=== PATIENT | female | born 1990 | race Two or more races ===

== ENCOUNTER 2020-09-21 19:57 | Emergency (ER) | payer BC, OTHER ==
[~2020-09-21] VITALS: Ht 185.4 cm; Wt 103.2 kg
--- NOTE | 2020-09-21 21:10 | NUR ---
EQUIP MAINT ENG: PT. TO ROOM FROM LOBBY AT THIS TIME.
[2020-09-21] MEDS ORDERED: SODIUM CHLORIDE FLUSH 10ML SYR IVF ONE (21:30)
[2020-09-21] MEDS ORDERED: SODIUM CHLORIDE 0.9% 1,000ML IVBOLUS ONE (21:30)
[2020-09-21] MEDS ORDERED: METOCLOPRAMIDE 5 MG/ML, 2ML IVPush ONE (21:30)
[2020-09-21] MEDS ORDERED: KETOROLAC 30 MG/1 ML IVPush ONE (21:30)
[2020-09-21] MEDS ORDERED: DIPHENHYDRAMINE 50 MG/ML, 1ML IVPush ONE (21:30)
--- NOTE | 2020-09-21 21:38 | NUR ---
assumed care of pt. pt here c/o MCDONOUGH. pt A&O x4. cam and cooperative. ambulatory and no facial droop noted. Dr. Rondon has been to bedside for eval. IV and IV medications held for now per MD order until pt has had CT scan pt sitting up on gurney texting on cell phone. no family at bedside. no apparent distress
[2020-09-21 22:18] VITALS: BP 108/65
--- NOTE | 2020-09-21 23:11 | NUR ---
ths pt was D/C by another RN
== END 2020-09-21 23:07 | disposition home or self-care (01) ==
LOC: ED 21:52
DX: G44.52 New daily persistent headache (NDPH) (principal)
CPT/HCPCS: 70450; 99284

== ENCOUNTER 2021-03-29 14:27 | Outpatient (CLI) | payer OTHER ==
[~2021-03-29] VITALS: Ht 185.4 cm; Wt 117.0 kg
[2021-03-29 14:45] VITALS: BP 125/79
[2021-03-29 15:01] LABS: BASOPHILS % (AUTO) 0 % (0-1); EOSINOPHILS % (AUTO) 0 % (1-7); LYMPHOCYTES % (AUTO) 19 % (22-44); MEAN CORPUSCULAR HEMOGLOBIN 29.4 pg (27.0-34.8); MEAN CORPUSCULAR HGB CONC 33.4 g/dL (32.4-35.8); MEAN PLATELET VOLUME 8.5 fL (7.4-10.4); MONOCYTES % (AUTO) 11 % (2-9); NEUTROPHILS % (AUTO) 70 % (42-75); PLATELET COUNT 315 x10^3/uL (130-400); RED BLOOD COUNT 4.47 x10^6/uL (3.82-5.3); RED CELL DISTRIBUTION WIDTH 13.8 % (9.6-15.2)
[2021-03-29 15:08] LABS: ALANINE AMINOTRANSFERASE 31 U/L (12-78); ALBUMIN 2.4 g/dL (3.4-5.0); ANION GAP 8 mmol/L (5-15); BILIRUBIN, DIRECT < 0.1 mg/dL (0.1-0.2); CALCIUM 8.5 mg/dL (8.5-10.1); CHLORIDE 107 mmol/L (98-107); CREATININE 0.55 mg/dL (0.55-1.02)
[2021-03-29 15:09] LABS: MD NO
[2021-03-29 15:10] LABS: ALKALINE PHOSPHATASE 95 U/L (45-117); BILIRUBIN,TOTAL 0.2 mg/dL (0.2-1.0)
[2021-03-29 15:51] LABS: MICROSCOPIC AUTO
[2021-03-29 15:57] LABS: TOTAL PROTEIN,URINE RANDOM < 5 mg/dL (0-12)
== END 2021-03-29 16:52 | disposition home or self-care (01) ==
LOC: LDOP 14:27
PROVIDERS: ATTEND Obstetrics & Gynecology
DX: O16.3 Unspecified maternal hypertension, third trimester (principal); Z3A.38 38 weeks gestation of pregnancy
CPT/HCPCS: 36415; 59025; 80053; 81001; 82248; 82570; 84156; 84550; 85025

== ENCOUNTER 2021-04-04 14:11 | Outpatient (CLI) | payer OTHER ==
[~2021-04-04] VITALS: Ht 185.4 cm; Wt 118.2 kg
[2021-04-04 14:22] VITALS: BP 127/77
[2021-04-04] MEDS ORDERED: ACETAMINOPHEN 325 MG TABLET ONE (14:52)
[2021-04-04] MEDS ORDERED: ACETAMINOPHEN 325 MG TABLET PO ONE (15:00)
[2021-04-04 15:08] LABS: BASOPHILS % (AUTO) 1 % (0-1); EOSINOPHILS % (AUTO) 1 % (1-7); LYMPHOCYTES % (AUTO) 15 % (22-44); MD NO; MEAN CORPUSCULAR HEMOGLOBIN 29.9 pg (27.0-34.8); MEAN CORPUSCULAR HGB CONC 33.7 g/dL (32.4-35.8); MEAN PLATELET VOLUME 8.7 fL (7.4-10.4); MONOCYTES % (AUTO) 9 % (2-9); NEUTROPHILS % (AUTO) 75 % (42-75); PLATELET COUNT 299 x10^3/uL (130-400); RED BLOOD COUNT 4.52 x10^6/uL (3.82-5.3); RED CELL DISTRIBUTION WIDTH 14.1 % (9.6-15.2)
[2021-04-04 15:20] LABS: ALANINE AMINOTRANSFERASE 58 U/L (12-78); ALBUMIN 2.5 g/dL (3.4-5.0); ANION GAP 9 mmol/L (5-15); CALCIUM 8.5 mg/dL (8.5-10.1); CHLORIDE 107 mmol/L (98-107)
[2021-04-04 15:22] LABS: ALKALINE PHOSPHATASE 103 U/L (45-117); BILIRUBIN, DIRECT < 0.1 mg/dL (0.1-0.2); BILIRUBIN,TOTAL 0.2 mg/dL (0.2-1.0); TOTAL PROTEIN 7.4 g/dL (6.4-8.2)
[2021-04-04 16:08] LABS: MICROSCOPIC INDICATED
== END 2021-04-04 16:30 | disposition home or self-care (01) ==
LOC: LDOP 14:11
PROVIDERS: ATTEND Obstetrics & Gynecology
DX: O16.3 Unspecified maternal hypertension, third trimester (principal); Z3A.38 38 weeks gestation of pregnancy
CPT/HCPCS: 36415; 59025; 80053; 81001; 82248; 82570; 84156; 84550; 85025

== ENCOUNTER 2021-04-08 18:38 | Outpatient (CLI) | payer OTHER ==
[~2021-04-08] VITALS: Ht 185.4 cm; Wt 122.0 kg
[2021-04-08 19:17] LABS: MICROSCOPIC INDICATED
== END 2021-04-08 19:55 | disposition home or self-care (01) ==
LOC: LDOP 18:38
PROVIDERS: ATTEND Obstetrics & Gynecology
DX: O26.893 Other specified pregnancy related conditions, third trimester (principal); Z3A.39 39 weeks gestation of pregnancy
CPT/HCPCS: 59025; 81001; 82570; 84156

== ENCOUNTER 2021-04-10 12:47 | Inpatient (IN) | payer OTHER ==
[~2021-04-10] VITALS: Ht 182.9 cm; Wt 118.6 kg
[2021-04-10] MEDS ORDERED: ONDANSETRON 2MG/ML, 2ML IVPush PRN ×2 (13:00→21:30)
[2021-04-10] MEDS ORDERED: OXYTOCIN 30U/ 0.9% NaCL 500ML 500 ML IV PRN (13:00)
[2021-04-10] MEDS ORDERED: TERBUTALINE 1 MG/ML, 1ML IVPush PRN (13:00)
[2021-04-10] MEDS ORDERED: SODIUM CITRATE/CITRIC ACID 30 ML UDC PO PRN (13:00)
[2021-04-10] MEDS ORDERED: TERBUTALINE 1 MG/ML, 1ML SQ PRN (13:00)
[2021-04-10] MEDS ORDERED: METOCLOPRAMIDE 5 MG/ML, 2ML IVPush PRN (13:00)
[2021-04-10] MEDS ORDERED: LACTATED RINGERS 1,000 ML IV SCH (13:00)
[2021-04-10] MEDS ORDERED: FENTANYL PF 100 MCG/2ML IVPush PRN (13:00)
[2021-04-10] MEDS ORDERED: D5%-LACTATED RINGERS 1,000 ML IV SCH (13:00)
[2021-04-10] MEDS ORDERED: FENTANYL PF 100 MCG/2ML IV PRN (13:00)
[2021-04-10] MEDS ORDERED: OXYTOCIN 30U/ 0.9% NaCL 500ML 500 ML IV ONE (13:00)
[2021-04-10] MEDS ORDERED: NEWBORN KIT ONE (13:01)
[2021-04-10] MEDS ORDERED: LIDOCAINE 1%, 20ML ONE ×3 (13:02→20:16)
[2021-04-10] MEDS ORDERED: MISOPROSTOL 200 MCG TABLET ONE (13:02)
[2021-04-10] MEDS ORDERED: OXYTOCIN 30U/ 0.9% NaCL 500ML 500 ML ONE (13:04)
[2021-04-10 13:25] LABS: MICROSCOPIC AUTO
[2021-04-10 13:26] LABS: BASOPHILS % (AUTO) 0 % (0-1); EOSINOPHILS % (AUTO) 0 % (1-7); LYMPHOCYTES % (AUTO) 17 % (22-44); MEAN CORPUSCULAR HEMOGLOBIN 29.9 pg (27.0-34.8); MEAN CORPUSCULAR HGB CONC 34.2 g/dL (32.4-35.8); MEAN PLATELET VOLUME 8.9 fL (7.4-10.4); MONOCYTES % (AUTO) 9 % (2-9); NEUTROPHILS % (AUTO) 73 % (42-75); PLATELET COUNT 340 x10^3/uL (130-400); RED BLOOD COUNT 4.61 x10^6/uL (3.82-5.3)
[2021-04-10 13:36] LABS: ALBUMIN 2.5 g/dL (3.4-5.0); ANION GAP 8 mmol/L (5-15); CALCIUM 8.7 mg/dL (8.5-10.1); CHLORIDE 111 mmol/L (98-107)
[2021-04-10 13:39] LABS: ALANINE AMINOTRANSFERASE 35 U/L (12-78); ALKALINE PHOSPHATASE 115 U/L (45-117); BILIRUBIN,TOTAL 0.2 mg/dL (0.2-1.0); TOTAL PROTEIN 7.4 g/dL (6.4-8.2)
[2021-04-10 14:13] VITALS: BP 130/82
[2021-04-10] MEDS ORDERED: MIDAZOLAM 1 MG/ML, 2ML ONE (20:23)
[2021-04-10] MEDS ORDERED: FENTANYL PF 100 MCG/2ML ONE (20:23)
[2021-04-10] MEDS ORDERED: CEFAZOLIN 1,000 MG ONE ×2 (20:55)
[2021-04-10] MEDS ORDERED: DIPHENHYDRAMINE 50 MG/ML, 1ML IVPush PRN (21:30)
[2021-04-10] MEDS ORDERED: LABETALOL 5MG/ML, 20ML IV PRN (21:30)
[2021-04-10] MEDS ORDERED: ACETAMINOPHEN 325 MG TABLET PO PRN (21:30)
[2021-04-10 22:15] VITALS: BP 116/78
[2021-04-10] MEDS: OXYTOCIN 30U/ 0.9% NaCL 500ML 500 ML IV SCH (22:30)
[2021-04-10] MEDS ORDERED: OXYcodone/APAP 5/325MG TABLET PO PRN ×2 (22:30)
[2021-04-10] MEDS ORDERED: SIMETHICONE 80 MG CHEW TAB PO PRN (22:30)
[2021-04-10] MEDS: DOCUSATE 100 MG CAPSULE PO PRN (22:47)
[2021-04-10] MEDS: IBUPROFEN 800 MG TABLET PO PRN (22:47)
[2021-04-11 01:50] VITALS: BP 112/70
[2021-04-11 05:30] VITALS: BP 110/74
[2021-04-11 05:45] LABS: BASOPHILS % (AUTO) 1 % (0-1); EOSINOPHILS % (AUTO) 0 % (1-7); LYMPHOCYTES % (AUTO) 13 % (22-44); MEAN CORPUSCULAR HGB CONC 33.9 g/dL (32.4-35.8); MONOCYTES % (AUTO) 10 % (2-9); NEUTROPHILS % (AUTO) 76 % (42-75); PLATELET COUNT 284 x10^3/uL (130-400); RED BLOOD COUNT 3.74 x10^6/uL (3.82-5.3); RED CELL DISTRIBUTION WIDTH 14.4 % (9.6-15.2)
[2021-04-11 07:30] VITALS: BP 116/78
[2021-04-11] MEDS: PRENATAL VIT/IRON/FA 1 EACH TABLET PO SCH (08:09)
[2021-04-11] MEDS: DOCUSATE 100 MG CAPSULE PO PRN ×2 (08:10→20:39)
[2021-04-11] MEDS: IBUPROFEN 800 MG TABLET PO PRN ×2 (08:10→20:32)
[2021-04-11] MEDS: OXYTOCIN 30U/ 0.9% NaCL 500ML 500 ML IV SCH ×2 (08:30→18:30)
[2021-04-11 14:04] VITALS: BP 119/87
[2021-04-11 21:00] VITALS: BP 116/81
[2021-04-12] MEDS: OXYTOCIN 30U/ 0.9% NaCL 500ML 500 ML IV SCH (04:30)
[2021-04-12 07:44] VITALS: BP 124/82
[2021-04-12] MEDS: DOCUSATE 100 MG CAPSULE PO PRN (07:48)
[2021-04-12] MEDS: IBUPROFEN 800 MG TABLET PO PRN (07:48)
[2021-04-12] MEDS: PRENATAL VIT/IRON/FA 1 EACH TABLET PO SCH (07:48)
[2021-04-12] MEDS ORDERED: IBUP200T49 PO (10:42)
== END 2021-04-12 12:40 | disposition home or self-care (01) | DRG 768 ==
LOC: LDIP 12:47 → 2NW 21:40
PROVIDERS: ADMIT Obstetrics & Gynecology; ATTEND Obstetrics & Gynecology
PROC: 10E0XZZ Delivery of Products of Conception, External Approach (ICD-10-PCS; principal; 2021-04-10)
PROC: 0DQR0ZZ Repair Anal Sphincter, Open Approach (ICD-10-PCS; 2021-04-10)
DX: O13.4 Gestational [pregnancy-induced] hypertension without significant proteinuria, complicating childbirth (principal); Z37.0 Single live birth; E66.9 Obesity, unspecified; O70.21 Third degree perineal laceration during delivery, IIIa; O99.214 Obesity complicating childbirth; Z23 Encounter for immunization
CPT/HCPCS: 36415; 80053; 81001; 82570; 84156; 84550; 85025; 86592; 86850; 86900; 87635; G0378; J0690; J2250; J3010; J2590; J7120